=== PATIENT | female | born 1970 | race Caucasian/White ===

== ENCOUNTER 2019-03-17 10:40 | Emergency (ER) | payer OTHER, BC ==
[2019-03-17] MEDS ORDERED: Sodium Chloride 0.9% 2.5 ML Syringe FLUSH PRN (10:42)
[2019-03-17] MEDS ORDERED: Sodium Chloride 0.9% 10 ML Syringe FLUSH PRN (10:42)
[2019-03-17] MEDS ORDERED: fentaNYL 100 MCG/2 ML SDV ONE (10:43)
[2019-03-17] MEDS ORDERED: Ondansetron 4 MG/2 ML SDV IVPUSH ONE (10:44)
[2019-03-17] MEDS ORDERED: HYDROmorphone 2 MG/ML Syringe IVPUSH ONE ×2 (10:44→10:59)
[2019-03-17] MEDS ORDERED: Ondansetron 4 MG/2 ML SDV ONE (10:45)
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
[2019-03-17 11:14] LABS: BLOOD UREA NITROGEN,BUN 9 mg/dL (7.0-18.0); CARBON DIOXIDE,CO2 29.9 mmol/L (21.0-32.0); CHLORIDE,CL 106 mmol/L (98-107); GLUCOSE RANDOM 115 mg/dL (74-106); POTASSIUM,K 4.1 mmol/L (3.5-5.1); SODIUM,NA 142 mmol/L (136-145)
[2019-03-17] MEDS ORDERED: Ketorolac 30 MG/ML SDV IVPUSH ONE (11:37)
[2019-03-17] MEDS ORDERED: Ketorolac 30 MG/ML SDV ONE (11:38)
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
[2019-03-17] MEDS ORDERED: Lidocaine/EPINEPHrine/Tetracaine Soln 1 ML ONE (14:00)
[2019-03-17] MEDS ORDERED: Iopamidol 755 Mg/ML 100 ML Bottle IVPUSH ONE (15:23)
== END 2019-03-17 12:45 ==
LOC: MERGE 10:40 → EDBD 10:40 → MW.ED 10:40
DX: S32.019A Unspecified fracture of first lumbar vertebra, initial encounter for closed fracture (principal); S32.039A Unspecified fracture of third lumbar vertebra, initial encounter for closed fracture; M51.26 Other intervertebral disc displacement, lumbar region; Z79.899 Other long term (current) drug therapy; V79.9XXA Bus occupant (driver) (passenger) injured in unspecified traffic accident, initial encounter
CPT/HCPCS: 36415; 70450; 71045; 72125; 74177; 80053; 85025; 96374; 96375; 99285; J1170; J1885; J2001; J2405; J3010; 72131; 72131-26

== ENCOUNTER 2020-06-20 14:26 | Emergency (ER) | payer BC ==
[2020-06-20] MEDS ORDERED: Sodium Chloride 0.9% 10 ML Syringe FLUSH PRN (14:35)
[2020-06-20] MEDS ORDERED: Sodium Chloride 0.9% 2.5 ML Syringe FLUSH PRN (14:35)
--- NOTE | 2020-06-20 15:12 | EDM.PDOC ---
ED HPI GENERAL MEDICAL PROBLEM - General Chief Complaint: Chest Pain Stated Complaint: EMS ARRIVAL Time Seen by Provider: 06/20/20 14:35 Source of Information: Reports: Patient History Limitations: Reports: No Limitations - History of Present Illness INITIAL COMMENTS - FREE TEXT/NARRATIVE: HISTORY AND PHYSICAL: History of present illness: Patient is a 50-year-old female who presents to the emergency room by ambulance with complaints of chest pain. She states she woke up this morning developing a typical migraine headache. She states she usually will take some Tylenol and take a nap. She thought maybe she was dehydrated because she forgot to drink water yesterday. She took the Tylenol, increased her fluids and slept till about 11 AM this afternoon. When she woke up the migraine headache had improved but she noticed she had a heavy sensation in her mid sternum that progressively had gotten worse. She points to the mid sternum and under bilateral breasts as the area which was the most painful. She called EMS who gave her 324 mg of aspirin and 1 tablet of nitro prior to arrival. Currently she has no chest pain but states her chest feels slightly sore. Patient denies any fever, chills, headache, change in vision, syncope or near syncope. Denies any back pain, shortness of breath or cough. Denies any abdominal pain, nausea, vomiting, diarrhea, constipation or dysuria. Has not noted any blood in urine or stool. Patient has been eating and drinking appropriately. Denies any personal or significant family history of heart disease. Review of systems: As per history of present illness and below otherwise all systems reviewed and negative. Past medical history: As per history of present illness and as reviewed below otherwise noncontributory. Surgical history: As per history of present illness and as reviewed below otherwise noncontributory. Social history: See social history for further information Family history: As per history of present illness and as reviewed below otherwise noncontributory. Physical exam: General: Well developed and well nourished 50 year old female. Alert and orientated x 3. Nontoxic in appearance and in no acute distress. Vital signs are stable and have been reviewed by me. Nursing notes were reviewed. HEENT: Atraumatic, normocephalic, pupils equal and reactive bilaterally, negative for conjunctival pallor or scleral icterus, mucous membranes dry/tacky, TMs normal bilaterally, throat clear, neck supple, nontender, trachea midline. No drooling or trismus noted. No meningeal signs. No hot potato voice noted. Lungs: Clear to auscultation, breath sounds equal bilaterally, chest nontender. Normal work of breathing, no accessory muscles used. Heart: S1S2, regular rate and rhythm without overt murmur Abdomen: Soft, nondistended, nontender. Negative for masses or hepatosplenomegaly. Negative for costovertebral tenderness. Skin: Intact, warm, dry. No lesions or rashes noted. Hematologic: No petechiae or purpra. Mucosa appropriate color and normal nail bed color and refill. Extremities: Atraumatic, moves all extremities per self without difficulty or deficits, negative for cords or calf pain. Neurovascular unremarkable. Neuro: Awake, alert, oriented. Cranial nerves II through XII unremarkable. Cerebellum unremarkable. Motor and sensory unremarkable throughout. Exam nonfocal. Psychiatric: Mood and affect are appropriate. Normal thought process. Answering questions appropriately. Notes: Heart Score: Low (3 points). Patient has ASA prior to arrival. 1 nitro sublingual that took away her chest pain. EKG upon arrival shows sinus arrhythmia with rate of 68 bpm. No concern for STEMI. Patient is agreeable to for diagnostics. Chest x-ray mild stable chronic interstitial changes without any acute cardiopulmonary abnormalities noted. I have talked with the patient about today's findings, in addition to providing specific details for plan of care. I did offer her admission which she declines. She is aware of possible risks of being discharged. We did discuss the need for follow-up with her primary care and/or the centerless grinder for further evaluation of this episode of chest pain. As she is low risk I do feel it is appropriate she can be discharged to home. Reassessment at the time of disposition demonstrates that the patient is in no acute distress. She has not had any pain while here. The patient is stable for discharge, counseling was provided and we discussed in great detail signs and symptoms that would prompt them to return to the Emergency Department. Medication, follow up and supportive care measures were reviewed and discussed. Voices understanding and is agreeable to plan of care. Denies any further questions or concerns at this time. Diagnostics: CBC, CMP, Troponin, EKG, CXR, D.Dimer, COVID Therapeutics: NS Prescription: None Impression: Chest pain Plan: 1. Today your lab work was within normal limits. You were offered admission which she declined. If it anytime you feel your symptoms should worsen, new symptoms develop or any of the signs and symptoms we discussed should arise please return to the emergency room or call 911 (if needed). We are happy to reevaluate you and discuss admission at that time. 2. Please start a Aspirin 81 mg once daily 3. We encourage you to follow up with your primary care provider and/or centerless grinder for re-evaluation and further care/management. Definitive disposition and diagnosis as appropriate pending reevaluation and review of above. - Related Data Allergies Allergy/AdvReac Type Severity Reaction Status Date / Time No Known Allergies Allergy Verified 06/20/20 16:13 Home Meds: Home Meds Levothyroxine 03/17/19 [History] buPROPion [Wellbutrin] 03/17/19 [History] estradioL [Estradiol] 03/17/19 [History] ED ROS GENERAL - Review of Systems Review Of Systems: Comprehensive ROS is negative, except as noted in HPI. ED EXAM, GENERAL - Physical Exam Exam: See Below (See dictation) Course - Vital Signs Last Recorded V/S: Last Vital Signs Temp 97.5 F 06/20/20 15:00 Pulse 75 06/20/20 15:57 Resp 15 06/20/20 15:57 BP 135/77 06/20/20 15:57 Pulse Ox 98 06/20/20 15:57 - Orders/Labs/Meds Orders: Active Orders 24 hr Category Date Time Status EKG Documentation Completion [RC] STAT Care 06/20/20 14:35 Active UA RFX SEUN AND CULT IF INDIC [URIN] Stat Lab 06/20/20 16:16 Ordered Sodium Chloride 0.9% [Normal Saline] 1,000 ml Med 06/20/20 15:18 Active IV STAT Sodium Chloride 0.9% [Saline Flush] Med 06/20/20 14:35 Active 10 ml FLUSH ASDIRECTED PRN Sodium Chloride 0.9% [Saline Flush] Med 06/20/20 14:35 Active 2.5 ml FLUSH ASDIRECTED PRN Saline Lock Insert [OM.PC] Stat Oth 06/20/20 14:35 Ordered Medication Orders Sodium Chloride (Normal Saline) 1,000 mls @ 150 mls/hr IV STAT ONE Stop: 06/20/20 21:57 Last Admin: 06/20/20 15:26 Dose: 150 mls/hr Documented by: JOSE MANUEL Sodium Chloride (Saline Flush) 10 ml FLUSH ASDIRECTED PRN PRN Reason: Keep Vein Open Last Admin: 06/20/20 15:26 Dose: 10 ml Documented by: JOSE MANUEL Sodium Chloride (Saline Flush) 2.5 ml FLUSH ASDIRECTED PRN PRN Reason: Keep Vein Open Last Admin: 06/20/20 15:26 Dose: 2.5 ml Documented by: JOSE MANUEL Labs: Laboratory Tests 06/20/20 06/20/20 06/20/20 Range/Units 15:14 15:14 15:14 WBC 7.25 (4.0-11.0) K/uL RBC 4.44 (4.30-5.90) M/uL Hgb 13.6 (12.0-16.0) g/dL Hct 40.9 (36.0-46.0) % MCV 92.1 (80.0-98.0) fL MCH 30.6 (27.0-32.0) pg MCHC 33.3 (31.0-37.0) g/dL RDW Std Deviation 42.7 (28.0-62.0) fl RDW Coeff of John 13 (11.0-15.0) % Plt Count 261 (150-400) K/uL MPV 10.00 (7.40-12.00) fL Neut % (Auto) 63.1 (48.0-80.0) % Lymph % (Auto) 29.2 (16.0-40.0) % Mcdonough % (Auto) 6.6 (0.0-15.0) % Eos % (Auto) 0.7 (0.0-7.0) % Baso % (Auto) 0.4 (0.0-1.5) % Neut # (Auto) 4.6 (1.4-5.7) K/uL Lymph # (Auto) 2.1 (0.6-2.4) K/uL Mcdonough # (Auto) 0.5 (0.0-0.8) K/uL Eos # (Auto) 0.1 (0.0-0.7) K/uL Baso # (Auto) 0.0 (0.0-0.1) K/uL Nucleated RBC % 0.0 /100WBC Nucleated RBCs # 0 K/uL D-Dimer, Quantitative (0.0-0.50) mg/L FEU Sodium 141 (136-145) mmol/L Potassium 3.9 (3.5-5.1) mmol/L Chloride 105 (98-107) mmol/L Carbon Dioxide 26.4 (21.0-32.0) mmol/L BUN 12 (7.0-18.0) mg/dL Creatinine 0.8 (0.6-1.0) mg/dL Est Cr Clr Drug Dosing TNP Estimated GFR (MDRD) > 60.0 ml/min Glucose 107 H (74-106) mg/dL Calcium 9.1 (8.5-10.1) mg/dL Total Bilirubin 0.3 (0.2-1.0) mg/dL AST 27 (15-37) IU/L ALT 23 (14-63) IU/L Alkaline Phosphatase 80 (46-116) U/L Troponin I < 0.050 (0.000-0.056) ng/mL Total Protein 6.6 (6.4-8.2) g/dL Albumin 3.5 (3.4-5.0) g/dL Globulin 3.1 (2.6-4.0) g/dL Albumin/Globulin Ratio 1.1 (0.9-1.6) TSH 3rd Generation 0.22 L (0.36-3.74) uIU/mL SARS-CoV-2 RNA (AIDEN) (NEGATIVE) 06/20/20 06/20/20 Range/Units 15:14 15:25 WBC (4.0-11.0) K/uL RBC (4.30-5.90) M/uL Hgb (12.0-16.0) g/dL Hct (36.0-46.0) % MCV (80.0-98.0) fL MCH (27.0-32.0) pg MCHC (31.0-37.0) g/dL RDW Std Deviation (28.0-62.0) fl RDW Coeff of John (11.0-15.0) % Plt Count (150-400) K/uL MPV (7.40-12.00) fL Neut % (Auto) (48.0-80.0) % Lymph % (Auto) (16.0-40.0) % Mcdonough % (Auto) (0.0-15.0) % Eos % (Auto) (0.0-7.0) % Baso % (Auto) (0.0-1.5) % Neut # (Auto) (1.4-5.7) K/uL Lymph # (Auto) (0.6-2.4) K/uL Mcdonough # (Auto) (0.0-0.8) K/uL Eos # (Auto) (0.0-0.7) K/uL Baso # (Auto) (0.0-0.1) K/uL Nucleated RBC % /100WBC Nucleated RBCs # K/uL D-Dimer, Quantitative 0.22 (0.0-0.50) mg/L FEU Sodium (136-145) mmol/L Potassium (3.5-5.1) mmol/L Chloride (98-107) mmol/L Carbon Dioxide (21.0-32.0) mmol/L BUN (7.0-18.0) mg/dL Creatinine (0.6-1.0) mg/dL Est Cr Clr Drug Dosing Estimated GFR (MDRD) ml/min Glucose (74-106) mg/dL Calcium (8.5-10.1) mg/dL Total Bilirubin (0.2-1.0) mg/dL AST (15-37) IU/L ALT (14-63) IU/L Alkaline Phosphatase (46-116) U/L Troponin I (0.000-0.056) ng/mL Total Protein (6.4-8.2) g/dL Albumin (3.4-5.0) g/dL Globulin (2.6-4.0) g/dL Albumin/Globulin Ratio (0.9-1.6) TSH 3rd Generation (0.36-3.74) uIU/mL SARS-CoV-2 RNA (AIDEN) NEGATIVE (NEGATIVE) Meds: Medications Generic Name Dose Route Start Last Admin Trade Name Freq PRN Reason Stop Dose Admin Sodium Chloride 1,000 mls @ 150 mls/hr 06/20/20 15:18 06/20/20 15:26 Normal Saline IV 06/20/20 21:57 150 mls/hr STAT ONE Administration Sodium Chloride 10 ml 06/20/20 14:35 06/20/20 15:26 Saline Flush FLUSH 10 ml ASDIRECTED PRN Administration Keep Vein Open Sodium Chloride 2.5 ml 06/20/20 14:35 06/20/20 15:26 Saline Flush FLUSH 2.5 ml ASDIRECTED PRN Administration Keep Vein Open Departure - Departure Time of Disposition: 16:21 Disposition: Home, Self-Care 01 Clinical Impression: Chest pain Qualifiers: Chest pain type: unspecified Qualified Code(s): R07.9 - Chest pain, unspecified Instructions: Nonspecific Chest Pain, Adult, [id number] Forms: ED Department Discharge Additional Instructions: The following information is given to patients seen in the emergency department who are being discharged to home. This information is to outline your options for follow-up care. We provide all patients seen in our emergency department with a follow-up referral. The need for follow-up, as well as the timing and circumstances, are variable depending upon the specifics of your emergency department visit. If you don't have a primary care physician on staff, we will provide you with a referral. We always advise you to contact your personal physician following an emergency department visit to inform them of the circumstance of the visit and for follow-up with them and/or the need for any referrals to a consulting specialist. The emergency department will also refer you to a specialist when appropriate. This referral assures that you have the opportunity for follow-up care with a specialist. All of these measure are taken in an effort to provide you with optimal care, which includes your follow-up. Under all circumstances we always encourage you to contact your private physician who remains a resource for coordinating your care. When calling for follow-up care, please make the office aware that this follow-up is from your recent emergency room visit. If for any reason you are refused follow-up, please contact the [facility] at and asked to speak to the emergency department charge nurse. [facility] [address] [place] [id number] [place] [address] Thank you for choosing the [facility] emergency department in [place] for your medical needs today. It was a pleasure caring for you. Today you were seen in the emergency department for chest pain. 1. Today your lab work was within normal limits. You were offered admission, which you declined. If it anytime you feel your symptoms should worsen, new symptoms develop or any of the signs and symptoms we discussed should arise please return to the emergency room or call 911 (if needed). We are happy to reevaluate you and discuss admission at that time. 2. Please start a Aspirin 81 mg once daily 3. We encourage you to follow up with your primary care provider and/or centerless grinder for re-evaluation and further care/management. Sepsis Event Note (ED) - Focused Exam Vital Signs: Vital Signs Temp Pulse Resp BP Pulse Ox 06/20/20 15:57 75 15 135/77 98 06/20/20 15:22 66 16 139/87 97 06/20/20 15:00 97.5 F 72 16 149/84 H 99 - My Orders Last 24 Hours: My Active Orders 06/20/20 14:35 EKG Documentation Completion [RC] STAT Sodium Chloride 0.9% [Saline Flush] 10 ml FLUSH ASDIRECTED PRN Sodium Chloride 0.9% [Saline Flush] 2.5 ml FLUSH ASDIRECTED PRN Saline Lock Insert [OM.PC] Stat 06/20/20 15:18 Sodium Chloride 0.9% [Normal Saline] 1,000 ml IV STAT 06/20/20 16:16 UA RFX SEUN AND CULT IF INDIC [URIN] Stat - Assessment/Plan Last 24 Hours: My Active Orders 06/20/20 14:35 EKG Documentation Completion [RC] STAT Sodium Chloride 0.9% [Saline Flush] 10 ml FLUSH ASDIRECTED PRN Sodium Chloride 0.9% [Saline Flush] 2.5 ml FLUSH ASDIRECTED PRN Saline Lock Insert [OM.PC] Stat 06/20/20 15:18 Sodium Chloride 0.9% [Normal Saline] 1,000 ml IV STAT 06/20/20 16:16 UA RFX SEUN AND CULT IF INDIC [URIN] Stat
--- NOTE | 2020-06-20 15:15 | PCM.SN.2 ---
#1 Interpretation EKG Date: 06/20/20 Time: 15:08 Rhythm: NSR Rate (Beats/Min): 68 [place]: Normal P-Wave: Present QRS: Normal ST-T: Normal QT: Normal MD/PQ Interval: 128 Comparison: NA - No Prior EKG EKG Interpretation Comments: normal EKG with sinus arrhythmia
[2020-06-20] MEDS ORDERED: Sodium Chloride 0.9% 1,000 ML IV ONE (15:18)
--- NOTE | 2020-06-20 16:07 | CR ---
Indication: Chest pain Comparison: Single view chest March 17, 2019 Technique: Single AP view chest Findings: There is hyperinflation and chronic interstitial change. There is no focal consolidation, effusion, or pneumothorax. The cardiomediastinal silhouette is within normal limits. The bony thorax is grossly intact. Impression: Mild stable chronic interstitial changes without acute cardiopulmonary abnormality. Dictated by Florin Evans MD @ Jun 20 2020 4:04PM Signed by Dr. Folrin Evans @ Jun 20 2020 4:05PM
[2020-06-20 16:09] LABS: BLOOD UREA NITROGEN,BUN 12 mg/dL (7.0-18.0); CARBON DIOXIDE,CO2 26.4 mmol/L (21.0-32.0); CHLORIDE,CL 105 mmol/L (98-107); GLUCOSE RANDOM 107 mg/dL (74-106); POTASSIUM,K 3.9 mmol/L (3.5-5.1); SODIUM,NA 141 mmol/L (136-145)
== END 2020-06-20 17:09 | disposition home or self-care (01) ==
LOC: MW.ED 14:26
DX: R07.9 Chest pain, unspecified (principal); Z20.828 Contact with and (suspected) exposure to other viral communicable diseases
CPT/HCPCS: 36415; 71045; 80053; 81003; 84443; 84484; 85025; 85379; 87635; 93005; 99285; J7030; 93010; 99283; U0002

== ENCOUNTER 2022-08-14 15:57 | Emergency (ER) | payer BC ==
[2022-08-14] MEDS ORDERED: Acetaminophen 325 MG Tab PO ONE (16:30)
[2022-08-14] MEDS ORDERED: Ondansetron 4 MG Tab.DIS PO ONE (16:30)
== END 2022-08-14 18:01 | disposition home or self-care (01) ==
LOC: MW.ED 15:57
DX: M25.551 Pain in right hip (principal); E03.9 Hypothyroidism, unspecified; Z79.899 Other long term (current) drug therapy
CPT/HCPCS: 73502; 99283; A9270

== ENCOUNTER 2023-06-09 08:34 | Day surgery (SDC) | payer BC ==
[~2023-06-09 08:34] MED LIST: Lactated Ringers 1,000 ML IV SCH; Sodium Chloride 0.9% 10 ML Syringe FLUSH PRN; Sodium Chloride 0.9% 2.5 ML Syringe FLUSH PRN; Sodium Chloride 0.9% 20 ML SDV IV PRN; ceFAZolin 2 GM in Sodium Chloride 0.9% 50 ML IV ONE
[2023-06-09] MEDS ORDERED: Metoclopramide 10 MG/2 ML SDV IVPUSH PRN (09:02)
[2023-06-09] MEDS ORDERED: HYDROmorphone 1 MG/ML Syringe IVPUSH PRN (09:02)
[2023-06-09] MEDS ORDERED: Morphine 2 MG/ML SYRINGE IVPUSH PRN (09:02)
[2023-06-09] MEDS ORDERED: Naloxone 0.4 MG/ML SDV IVPUSH PRN (09:02)
[2023-06-09] MEDS ORDERED: droPERidol 5 MG/2 ML SDV IVPUSH PRN (09:02)
[2023-06-09] MEDS ORDERED: fentaNYL 50 MCG/ML SDV IVPUSH PRN (09:02)
[2023-06-09] MEDS ORDERED: Ondansetron 4 MG/2 ML SDV IVPUSH PRN (09:02)
[2023-06-09] MEDS ORDERED: Albuterol 0.083% 2.5 MG/3 ML Neb Soln NEB PRN (09:02)
[2023-06-09] MEDS ORDERED: Lidocaine 1% 20 ML MDV ONE (09:03)
[2023-06-09] MEDS ORDERED: Bupivacaine 0.5% 30 ML SDV ONE (09:03)
[2023-06-09] MEDS ORDERED: Ketorolac 30 MG/ML SDV ONE (09:21)
[2023-06-09] MEDS ORDERED: Propofol 200 MG/20 ML SDV ONE (09:21)
[2023-06-09] MEDS ORDERED: Ondansetron 4 MG/2 ML SDV ONE (09:21)
[2023-06-09] MEDS ORDERED: fentaNYL 100 MCG/2 ML SDV ONE (09:21)
[2023-06-09] MEDS ORDERED: Dexamethasone 4 MG/ML 5 ML MDV ONE (09:21)
[2023-06-09] MEDS ORDERED: Lidocaine 2% 5 ML SDV ONE (09:21)
[2023-06-09] MEDS ORDERED: ceFAZolin 2 GM Vial ONE (10:23)
== END 2023-06-09 11:55 | disposition home or self-care (01) ==
LOC: MW.SDS 08:34
PROVIDERS: ATTEND Surgery
DX: L72.11 Pilar cyst (principal); D17.20 Benign lipomatous neoplasm of skin and subcutaneous tissue of unspecified limb; F41.9 Anxiety disorder, unspecified; F32.A Depression, unspecified; E03.9 Hypothyroidism, unspecified; G43.909 Migraine, unspecified, not intractable, without status migrainosus; G47.30 Sleep apnea, unspecified; Z98.890 Other specified postprocedural states; Z79.899 Other long term (current) drug therapy; Z79.82 Long term (current) use of aspirin; Z79.890 Hormone replacement therapy
CPT/HCPCS: 11406; 11421; J0690; J1100; J1885; J2405; J2704; J3010; J3490; J7120; 00300; J0665